=== PATIENT | male | born 2000 | race Caucasian/White ===

== ENCOUNTER 2019-02-27 09:41 | Emergency (ER) | payer OTHER ==
[2019-02-27 09:46] VITALS: BP 132/70; PULSE 54; TEMP 98.3; BMI 22.1
--- NOTE | 2019-02-27 10:08 | PDOC ---
History of Present Illness - General Chief Complaint: Rash Stated Complaint: RASH Time Seen by Provider: 02/27/19 09:59 History Source: Patient Exam Limitations: Clinical Condition - History of Present Illness Initial Comments: 02/27/19 10:09 Patient with no significant past medical history present with complaint of worsening redness or plantar aspect of right wrist for week. Patient reported previous laceration to right wrist from a cut few weeks ago which started to itch to right wrist and he has been scratching the area which started to swell up and getting red. Patient report redness started small but has been expending in the past week. Denies drainage from site. Report pain only when he presses on the rash areas. Denies fever, chills, numbness or tingling sensation. Denies any other symptoms Timing/Duration: reports: week (1 week) Past History - Past Medical History Allergies/Adverse Reactions: Allergies Allergy/AdvReac Type Severity Reaction Status Date / Time No Known Allergies Allergy Verified 02/27/19 09:45 Home Medications: Ambulatory Orders Cephalexin [Keflex] 500 mg PO BID 7 Days #14 capsule 02/27/19 Mupirocin Ointment [Bactroban 2% Ointment -] 1 applic TP BID 7 Days #1 tube COPD: No - Suicide/Smoking/Psychosocial Hx Smoking History: Never smoked Review of Systems - Review of Systems Able to Perform ROS?: Yes Is the patient limited [place] proficient: No Constitutional: No: Chills, Fever, Malaise HEENTM: No: Symptoms Reported Respiratory: No: Symptoms reported Cardiac (ROS): No: Symptoms Reported ABD/GI: No: Symptoms Reported Integumentary: Yes: Symptoms Reported, See HPI, Erythema (plantar aspect of right distal forearm), Pruritus (intermittent to rash areas) Neurological: No: Symptoms reported, Numbness, Paresthesia, Tingling All Other Systems: Reviewed and Negative *Physical Exam - Vital Signs Last Vital Signs Temp Pulse Resp BP Pulse Ox 98.3 F 54 L 18 132/70 98 02/27/19 09:43 02/27/19 09:43 02/27/19 09:43 02/27/19 09:43 02/27/19 09:43 - Physical Exam Comments: 02/27/19 10:13 GENERAL: Well developed, well nourished. Awake and alert. No acute distress. NECK: Supple. Full ROM. CARDIOVASCULAR: Regular rate and rhythm. No murmurs, rubs, or gallops. Distal pulses are 2+ and symmetric. PULMONARY: No evidence of respiratory distress. Lungs clear to auscultation bilaterally. No wheezing, rales or rhonchi. MUSCULOSKELETAL Normal range of motion at all joints. SKIN: Warm and dry. Normal capillary refill. diffused well demarcated 3cm area of circular erythema with excoriations from scratching to plantar aspect of right wrist. no open wounds . NEUROLOGICAL: Alert, awake, appropriate. Gait is normal without ataxia. PSYCHIATRIC: Cooperative. Good eye contact. Appropriate mood General Appearance: Yes: Nourished, Appropriately Dressed. No: Apparent Distress Medical Decision Making - Medical Decision Making 02/27/19 10:14 Patient with no significant past medical history present with complaint of worsening redness or plantar aspect of right wrist for week. Patient reported previous laceration to right wrist from a cut few weeks ago which started to itch to right wrist and he has been scratching the area which started to swell up and getting red. Patient report redness started small but has been expending in the past week. Denies drainage from site. Report pain only when he presses on the rash areas. Denies fever, chills, numbness or tingling sensation. Denies any other symptoms Exam significant for 3cm area of well demarcated erythema with excoriations to plantar aspect of right wrist. FROM of wrist and hand. Patient will be discharged home on mupirocin topical and Keflex for cellulitis with dermatology follow-up *DC/Admit/Observation/Transfer Diagnosis at time of Disposition: Dermatitis - Discharge Dispostion Disposition: HOME Condition at time of disposition: Stable Decision to Admit order: No - Prescriptions Prescriptions: Cephalexin [Keflex] 500 mg PO BID 7 Days #14 capsule Mupirocin Ointment [Bactroban 2% Ointment -] 1 applic TP BID 7 Days #1 tube - Referrals Referrals: Savannah Ramos MD [Staff Physician] - - Patient Instructions Additional Instructions: Take medications as prescribed. Follow-up with referred [facility] admin as soon as possible - Post Discharge Activity
== END 2019-02-27 10:10 | disposition home or self-care (01) ==
LOC: JERFT 09:41
DX: L30.9 Dermatitis, unspecified (principal)
CPT/HCPCS: 99281-25

== ENCOUNTER 2019-06-10 19:23 | Emergency (ER) | payer OTHER ==
[2019-06-10 19:48] VITALS: BP 105/64; PULSE 65; TEMP 98.1; BMI 23.1
--- NOTE | 2019-06-10 20:16 | PDOC ---
History of Present Illness - General Chief Complaint: Toothache Stated Complaint: TOOTCH ACHE Time Seen by Provider: 06/10/19 20:16 History Source: Patient - History of Present Illness Initial Comments: 06/10/19 20:25 Chief complaint: Toothache Patient is a 19-year-old male, no significant medical problems toothache for the last 2 months. Patient states he has been using Orajel and has not had time to go to the dentist. Patient came to the ER tonight because he usually uses Orajel but his had a baby last night in this hospital so he is in the hospital, does not have his Orajel and is in pain so he came to the ER. No fever, no difficulty swallowing. Nothing is changed other than he does not have the Orajel. Patient states he has not gone to the dentist because he works Tuesday through Tuesday. GENERAL/CONSTITUTIONAL: No fever, weakness. dizziness HEAD, EYES, EARS, NOSE AND THROAT: No change in vision. No ear pain or discharge. No sore throat. + Toothache CARDIOVASCULAR: No chest pain RESPIRATORY: No shortness of breath or cough GASTROINTESTINAL: No pain, nausea, vomiting, diarrhea or constipation GENITOURINARY: No dysuria MUSCULOSKELETAL: No neck or back pain SKIN: No rash NEUROLOGIC: No headache, vertigo, loss of consciousness, or loss of sensation. GENERAL: The patient is awake, alert, and fully oriented, in no acute distress. HEAD: Normal with no signs of trauma. EYES: Pupils equal, round and reactive to light, sclera anicteric, conjunctiva clear. ENT: Left upper posterior tooth with decay, somewhat broken, no signs of erythema. Otherwise some other dental decay, no difficulty speaking, swallowing. Pharynx: no erythema, no exudate, uvula midline NECK: supple CHEST: clear, nontender, rr ABD: soft, nontender BACK: no tenderness or signs of injury EXTREMITIES: Normal range of motion, no edema. NEUROLOGICAL: Normal speech, normal gait. SKIN: Warm, Dry Past History - Past Medical History Allergies/Adverse Reactions: Allergies Allergy/AdvReac Type Severity Reaction Status Date / Time No Known Allergies Allergy Verified 02/27/19 09:45 Home Medications: Ambulatory Orders NK [No Known Home Medication] 06/10/19 COPD: No - Psycho Social/Smoking Cessation Hx Smoking History: Never smoked Hx Alcohol Use: Yes (Socially) Drug/Substance Use Hx: No *Physical Exam - Vital Signs Last Vital Signs Temp Pulse Resp BP Pulse Ox 98.1 F 65 18 105/64 97 06/10/19 19:44 06/10/19 19:44 06/10/19 19:44 06/10/19 19:44 06/10/19 19:44 Medical Decision Making - Medical Decision Making 06/10/19 20:26 Patient with toothache for 2 months, came to the ER because his gave and he does not have the Orajel with him that he has been using. Has not seen a dentist because he states he cannot take the time off from work. Explained to patient that he needs to see a dentist. We will give him a dose of Motrin, there are no signs of infection and this is been chronic for 2 months. 06/10/19 20:27 Discussed issues, findings, results, applicable medications and treatments and follow-up. All these were understood and all questions were answered Discharge - Discharge Information Problems reviewed: Yes Clinical Impression/Diagnosis: Toothache Condition: Stable Disposition: HOME - Admission No - Additional Discharge Information Prescription Drug Monitoring Program (I-STOP) results: I-STOP reviewed and no issues identified - Follow up/Referral - Patient Discharge Instructions Patient Printed Discharge Instructions: DI for Dental Pain Additional Instructions: Is very important for you to follow-up with a dentist as this tooth can get worse, you can end up with an infection. Drink 2-3 L of water daily Take Tylenol 650 mg every 4 hours or Motrin 600 mg every 6 hours for fever and pain Return to the nearest ER if short of breath, unable to swallow or feeling sicker Followup with your doctor in one to 2 days - Post Discharge Activity
[2019-06-10] MEDS ORDERED: IBUPROFEN 600 MG TABLET (FP) PO ONE ×2 (20:29→20:36)
== END 2019-06-10 20:40 | disposition home or self-care (01) ==
LOC: JERFT 19:23 → JER 19:23 → JERFT 20:40
DX: K08.89 Other specified disorders of teeth and supporting structures (principal)
CPT/HCPCS: 99281-25